=== PATIENT | male | born 1945 | race Caucasian/White ===

== ENCOUNTER 2024-01-10 09:56 | Outpatient (CLI) | payer MEDICARE, SELFPAY ==
[2024-01-10 19:39] LABS: Basophils Percent Auto 0.5 % (0.2-1.2); Eosinophils Absolute Auto 0.2 K/mm3 (0-0.3); Eosinophils Percent Auto 2.5 % (0-4.4); Hemoglobin 14.7 g/dL (14.0-18.0); Immature Granulocyte Absolute 0.01 K/mm3 (0.00-0.031); Immature Granulocyte Percent A 0.2 % (0-0.5); Lymphocytes Absolute Auto 1.92 K/mm3 (0.9-3.2); Lymphocytes Percent Auto 32.3 % (18.3-44.2); Mean Corpuscular HGB Conc 32.7 g/dl (32-36); Mean Corpuscular Hemoglobin 34.5 pg (26-34); Mean Corpuscular Volume 105.6 fl (80-100); Mean Platelet Volume 9.9 fl (7.4-10.4); Monocytes Absolute Auto 0.9 K/mm3 (0.1-0.6); Monocytes Percent Auto 14.3 % (2.6-8.5); Neutrophils Percent Auto 50.2 % (45.5-73.1); Platelet Count Result 161 k/mm3 (150-375); Red Blood Count 4.26 M/mm3 (4.6-6.20); Red Cell Distribution Width 13.7 % (11.5-14.5)
[2024-01-10 19:58] LABS: Alanine Aminotransferase 25 U/L (6-50); Albumin Level 4.6 g/dL (3.5-5.1); Alkaline Phosphatase 66 U/L (38-126); Anion Gap 5 mmol/L (4-12); Aspartate Amino Transferase 32 U/L (17-59); Bilirubin,Total 1.2 mg/dL (0.2-1.3); Blood Urea Nitrogen 15 mg/dL (9-20); Carbon Dioxide 29 mmol/L (22-30); Chloride 106 mmol/L (98-107); Estimated Glomerular Filt Rate > 60; Glucose 90 mg/dL (65-110); Potassium 4.1 mmol/L (3.4-5.0); Sodium 140 mmol/L (137-145)
[2024-01-10 20:01] LABS: Macrocytosis 1+ (NORMAL); Platelet Estimate Adequate (Adequate); Schistocytes None Seen
[2024-01-10 20:25] LABS: Prostate Specific Antigen 0.8 ng/mL (< OR = 4.0)
== END 2024-01-10 09:57 | disposition home or self-care (01) ==
PROVIDERS: PCP Family Medicine; Visit Provider Family Medicine
DX: Z12.5 Encounter for screening for malignant neoplasm of prostate (principal); R53.83 Other fatigue; E78.5 Hyperlipidemia, unspecified; Z86.73 Personal history of transient ischemic attack (TIA), and cerebral infarction without residual deficits; Z13.220 Encounter for screening for lipoid disorders; Z13.228 Encounter for screening for other metabolic disorders
CPT/HCPCS: 36415; 80053; 84153; 85025; G0103

== ENCOUNTER 2024-05-11 11:25 | Outpatient (CLI) | payer MEDICARE, SELFPAY ==
[2024-05-11 14:46] LABS: Cholesterol 130 mg/dL (0-200); HDL Direct 47 mg/dL; Triglycerides 96 mg/dL (<150)
[2024-05-11 14:57] LABS: LDL Cholesterol Direct 61 mg/dL
== END 2024-05-11 11:26 | disposition home or self-care (01) ==
LOC: ANHGOSHLAB 11:26
PROVIDERS: PCP Family Medicine; Visit Provider Family Medicine
DX: E78.5 Hyperlipidemia, unspecified (principal); Z86.73 Personal history of transient ischemic attack (TIA), and cerebral infarction without residual deficits
CPT/HCPCS: 36415; 80061

== ENCOUNTER 2024-11-15 00:21 | Day surgery (SDC) | payer MEDICARE, SELFPAY ==
[2024-11-09 12:45] VITALS: BMI 27.1
[2024-11-15 09:31] VITALS: BP 119/72; PULSE 62; RESP 18; TEMP 36.1; O2SAT 98; BMI 27.1
--- NOTE | 2024-11-15 09:45 | P.PNAN_ITS ---
Anes - Initial Pre Proc Eval Procedure: Operation Date: 11/15/24 11:00 Proposed Procedures p Colonoscopy - Josh Steve MD Date/Time: 11/15/24 09:45 Surgeon: Josh Steve MD Pre Op Diagnosis: family hx of cancer Patient Data Age: 79 Gender: M Height: 1.83 m Weight: 91 kg Last Vital Signs Temp 36.1 C L 11/15/24 09:31 Pulse 62 11/15/24 09:31 Resp 18 11/15/24 09:31 BP 119/72 11/15/24 09:31 Pulse Ox 98 11/15/24 09:31 O2 Del Method Room Air 11/15/24 09:31 Allergies Allergy/AdvReac Type Severity Reaction Status Date / Time amoxicillin Allergy Mild Rash Verified 11/15/24 09:30 diazepam (From Valium) Allergy Mild Depression Verified 11/15/24 09:30 Penicillins Allergy Mild Rash Verified 11/15/24 09:30 Home Medications ?Medication ?Instructions ?Recorded ?Confirmed ?Type latanoprost 0.005 % eye drops 1 drp EACH EYE QPM 01/10/24 11/15/24 History multivitamin 1 tablet PO DAILY 01/10/24 11/15/24 History budesonide 3 mg 3 mg PO QAM #90 ea 07/26/24 11/15/24 Rx capsule,delayed,extended release aspirin 81 mg tablet,delayed 81 mg PO DAILY #90 tabs 08/18/24 11/15/24 Rx release (Adult Aspirin Regimen) famotidine 20 mg tablet 20 mg PO DAILY #90 tabs 08/18/24 08/18/24 Rx finasteride 5 mg tablet 5 mg PO DAILY #90 tabs 08/18/24 11/15/24 Rx omeprazole 20 mg capsule,delayed 20 mg PO DAILY #90 caps 08/18/24 11/15/24 Rx release rosuvastatin 40 mg tablet 40 mg PO DAILY #90 tabs 08/18/24 11/15/24 Rx tamsulosin 0.4 mg capsule 0.4 mg PO DAILY #90 caps 08/18/24 11/15/24 Rx venlafaxine 37.5 mg tablet 18.75 mg (1/2 x 37.5 mg) PO DAILY 09/03/24 11/15/24 Rx 3 months #45 tabs timolol maleate 0.5 % eye drops 1 drp EACH EYE DAILY 11/09/24 11/15/24 History Patient hx anesthesia problems: none Family hx anesthesia problems: none Results Review: All pre-operative results and documents have been reviewed as part of the pre- operative evaluation. [facility] Past Medical History Medical History Stroke Fecal incontinence Fecal urgency Diarrhea Surgical History Surgical History (Updated 11/15/24 @ 09:46 by Jose Lanza MD) S/P carotid endarterectomy Family History Family History Father Carcinoma of colon Cerebrovascular accident Mother Depression Arthritis Sibling Arthritis Grandparent Asthma Social History Social History Social History: caffeine 3-4 cups soda/cola daily WILL ONLY ACCEPT BLOOD FROM FAMILY Smoking packs per day: 1 Smoking cigarettes per day: 20.0 Years smoked: 3 Smoking pack-years: 3.00 Smoking status: Former smoker Smoking end date: 09/06/1965 Alcohol intake: current Drinks per week: 7 Substance use: never Living arrangements: with family Occupation/Education: retired Gender identity (if verbalized by the patient): Male Sexual Orientation (if Verbalized by the Patient): Straight or Heterosexual Spiritual care concerns: No Anes - Eval Final PreProcedure Day of Procedure 11/15/24 09:45 Patient weight: overweight Heart: regular rate and rhythm Lungs: clear to auscultation Airway: Mallampati scale class II Neurological: alert and oriented Last oral intake: >/= 8 hours ASA classification: III Emergent: no Anesthetic plan: proceed Anesthesia type and monitoring: general GIVS and standard monitoring Results Review: All pre-operative results and documents have been reviewed as part of the pre- operative evaluation. Informed Consent: The patient's anesthetic plan and its attendant risks and benefits were discussed with the patient/family/POA. Questions were solicited and answers provided to the satisfaction of the patient/family/POA.
[2024-11-15] MEDS: LACTATED RINGERS 1,000 ML 150 ML IV CONT (09:49)
--- NOTE | 2024-11-15 10:40 | PM.HPGS ---
History of Present Illness History of Present Illness Consent: Risks, benefits, and alternatives have been discussed and questions answered. Patient agrees to proceed with procedure. Chief complaint: family hx of cancer Narrative: Anant Ambrose is a 79 year old male with last colonoscopy in 2019, father had colon cancer, also h/o microscopic colitis on budesonide Review of Systems Review of Systems: All systems reviewed & are unremarkable except as noted in HPI and below PMFSH Past Medical History Medical History Stroke Fecal incontinence Fecal urgency Diarrhea Surgical History Surgical History (Updated 11/15/24 @ 09:46 by Jose Lanza MD) S/P carotid endarterectomy Family History Family History Father Carcinoma of colon Cerebrovascular accident Mother Depression Arthritis Sibling Arthritis Grandparent Asthma Social History Social History Social History: caffeine 3-4 cups soda/cola daily WILL ONLY ACCEPT BLOOD FROM FAMILY Smoking packs per day: 1 Smoking cigarettes per day: 20.0 Years smoked: 3 Smoking pack-years: 3.00 Smoking status: Former smoker Smoking end date: 09/06/1965 Alcohol intake: current Drinks per week: 7 Substance use: never Living arrangements: with family Occupation/Education: retired Gender identity (if verbalized by the patient): Male Sexual Orientation (if Verbalized by the Patient): Straight or Heterosexual Spiritual care concerns: No Meds Home Medications and Allergies Home Medications ?Medication ?Instructions ?Recorded ?Confirmed ?Type latanoprost 0.005 % eye drops 1 drp EACH EYE QPM 01/10/24 11/15/24 History multivitamin 1 tablet PO DAILY 01/10/24 11/15/24 History budesonide 3 mg 3 mg PO QAM #90 ea 07/26/24 11/15/24 Rx capsule,delayed,extended release aspirin 81 mg tablet,delayed 81 mg PO DAILY #90 tabs 08/18/24 11/15/24 Rx release (Adult Aspirin Regimen) famotidine 20 mg tablet 20 mg PO DAILY #90 tabs 08/18/24 08/18/24 Rx finasteride 5 mg tablet 5 mg PO DAILY #90 tabs 08/18/24 11/15/24 Rx omeprazole 20 mg capsule,delayed 20 mg PO DAILY #90 caps 08/18/24 11/15/24 Rx release rosuvastatin 40 mg tablet 40 mg PO DAILY #90 tabs 08/18/24 11/15/24 Rx tamsulosin 0.4 mg capsule 0.4 mg PO DAILY #90 caps 08/18/24 11/15/24 Rx venlafaxine 37.5 mg tablet 18.75 mg (1/2 x 37.5 mg) PO DAILY 09/03/24 11/15/24 Rx 3 months #45 tabs timolol maleate 0.5 % eye drops 1 drp EACH EYE DAILY 11/09/24 11/15/24 History Allergies Allergy/AdvReac Type Severity Reaction Status Date / Time amoxicillin Allergy Mild Rash Verified 11/15/24 09:30 diazepam (From Valium) Allergy Mild Depression Verified 11/15/24 09:30 Penicillins Allergy Mild Rash Verified 11/15/24 09:30 Vital Signs Vital Signs - 24 hr 11/15/24 09:31 Temperature 97 F L Pulse Rate 62 Respiratory Rate 18 Blood Pressure 119/72 Pulse Oximetry 98 Oxygen Delivery Room Air Exam Const: General: comfortable and no acute distress HENMT: Face/Nose/Sinus: Normal nares present Eyes: General: appearance normal, both eyes and all related structures Neck: Neck: no JVD Resp: Auscultation: clear to auscultation bilaterally Cardio: Rate: regular rate Rhythm: regular rhythm GI: Inspection: non-distended GI Palp: Yes Soft to palpation Skin: General skin exam: normal color Neuro: Speech: normal speech Extrem: General: normal to inspection Psych: Mental Status: mental status grossly normal Assessment and Plan Assessment and plan (1) Family hx of colon cancer: Code(s): Z80.0 - Family history of malignant neoplasm of digestive organs Status: Acute Assessment and Plan: colonoscopy (2) Collagenous colitis: Code(s): K52.831 - Collagenous colitis Status: Acute Assessment and Plan: random colon bx
--- NOTE | 2024-11-15 10:59 | S_PTH ---
PATIENT: Anant Ambrose LOC: [facility] [place]#:[id number] AGE/SX: 79/M ROOM: RE11/15/[address]: Josh Steve MD : 1945 BED: DIS: 11/15/2024 SPEC #: [id number] RECD: 11/15/24 11:54 STATUS: [place] REPrice #: [id number] GLENNY: 11/15/24 10:[address]: Josh Steve DEPT: [facility] Surgical RECD BY: Kathleen Whitman ENTERED: 11/15/24 11:54 SP TYPE: Surgical OTHR DR: Maricel Giles APRN Tissues: A - Colon Polypectomy B - Colon Biopsy Procedures: Hematoxylin and Eosin Stain Gross and Microscopic Level 4
[2024-11-15 11:02] VITALS: BP 92/52; PULSE 62; RESP 14; O2SAT 96
[2024-11-15 11:12] VITALS: BP 84/43; PULSE 61; RESP 20; O2SAT 99
[2024-11-15 11:32] VITALS: BP 116/71; PULSE 74; RESP 16; O2SAT 99
== END 2024-11-15 11:41 | disposition home or self-care (01) ==
PROVIDERS: PCP Nurse Practitioner Family; Referring Provider Nurse Practitioner; Visit Provider Internal Medicine Gastroenterology
PROC: 0DJD8ZZ Inspection of Lower Intestinal Tract, Via Natural or Artificial Opening Endoscopic (ICD-10-PCS; CPT 45378; principal; 2024-11-15 11:00)
DX: Z12.11 Encounter for screening for malignant neoplasm of colon (principal); D12.3 Benign neoplasm of transverse colon; K52.832 Lymphocytic colitis; K64.8 Other hemorrhoids; K57.30 Diverticulosis of large intestine without perforation or abscess without bleeding; R15.2 Fecal urgency; Z79.82 Long term (current) use of aspirin; Z98.890 Other specified postprocedural states; Z87.891 Personal history of nicotine dependence; Z86.73 Personal history of transient ischemic attack (TIA), and cerebral infarction without residual deficits; Z80.0 Family history of malignant neoplasm of digestive organs; Z82.49 Family history of ischemic heart disease and other diseases of the circulatory system
CPT/HCPCS: 45380; 45385; 88305; J2003; J2371; J2704; J7120

== ENCOUNTER 2025-02-09 10:27 | Outpatient (CLI) | payer MEDICARE, SELFPAY ==
--- NOTE | ~2025-02-09 | XR_ITS ---
XR chest 2V 02/09/2025 10:43 Indication: Chronic cough Procedure: PA and lateral views the chest Comparison: No prior studies for comparison. Findings: Borderline heart size. There is interstitial infiltrates bilaterally. No significant effusi on or pneumothorax. Impression: 1: Bilateral interstitial infiltrates. Differential diagnosis includes chronic interstitial lung dise ase, mild edema and atypical pneumonia. Reviewed, dictated and finalized at location A. Impression: 1: Bilateral interstitial infiltrates. Differential diagnosis includes chronic interstitial lung disease, mild edema and atypical pneumonia.
[2025-02-09 11:40] LABS: Hematocrit 44.7 % (42.0-52.0); Hemoglobin 14.7 g/dL (14.0-18.0); Immature Platelet Fraction Pct 3.6 % (0.9-11.2); Mean Corpuscular HGB Conc 32.9 g/dl (32-36); Mean Corpuscular Hemoglobin 34.1 pg (26-34); Mean Corpuscular Volume 103.7 fl (80-100); Mean Platelet Volume 9.6 fl (7.4-10.4); Platelet Count Result 149 k/mm3 (150-375); Red Blood Count 4.31 M/mm3 (4.6-6.20); Red Cell Distribution Width 13.4 % (11.5-14.5)
[2025-02-09 11:54] LABS: Alanine Aminotransferase 28 U/L (6-50); Albumin Level 4.6 g/dL (3.5-5.1); Alkaline Phosphatase 71 U/L (38-126); Anion Gap 6 mmol/L (4-12); Aspartate Amino Transferase 34 U/L (17-59); Bilirubin,Total 1.2 mg/dL (0.2-1.3); Blood Urea Nitrogen 18 mg/dL (9-20); Calcium 10.2 mg/dL (8.4-10.2); Carbon Dioxide 30 mmol/L (22-30); Chloride 104 mmol/L (98-107); Cholesterol 139 mg/dL (0-200); Estimated Glomerular Filt Rate > 60; Glucose 97 mg/dL (65-110); HDL Direct 55 mg/dL; Magnesium 1.6 mg/dL (1.6-2.3); Potassium 4.1 mmol/L (3.4-5.0); Sodium 140 mmol/L (137-145); Total Protein 7.7 g/dL (6.3-8.2); Triglycerides 73 mg/dL (<150)
[2025-02-09 12:05] LABS: LDL Cholesterol Direct 64 mg/dL
[2025-02-09 13:03] LABS: Folic Acid 19.1 ng/mL (2.76->20)
[2025-02-09 13:18] LABS: Free T4 Free Thyroxine Reflex 0.69 ng/dL (0.78-2.19)
== END 2025-02-09 10:28 | disposition home or self-care (01) ==
PROVIDERS: PCP Nurse Practitioner Family; Visit Provider Nurse Practitioner Family
DX: R91.8 Other nonspecific abnormal finding of lung field (principal); K21.9 Gastro-esophageal reflux disease without esophagitis; M35.3 Polymyalgia rheumatica; N40.1 Benign prostatic hyperplasia with lower urinary tract symptoms; R35.1 Nocturia; K52.831 Collagenous colitis; H34.8392 Tributary (branch) retinal vein occlusion, unspecified eye, stable; F41.8 Other specified anxiety disorders; D75.89 Other specified diseases of blood and blood-forming organs; M65.332 Trigger finger, left middle finger; E53.8 Deficiency of other specified B group vitamins; R41.3 Other amnesia; I25.10 Atherosclerotic heart disease of native coronary artery without angina pectoris; R79.0 Abnormal level of blood mineral; Z79.899 Other long term (current) drug therapy; Z86.0100 Personal history of colon polyps, unspecified; Z86.73 Personal history of transient ischemic attack (TIA), and cerebral infarction without residual deficits; Z80.0 Family history of malignant neoplasm of digestive organs
CPT/HCPCS: 36415; 71046; 80053; 80061; 82607; 82746; 83735; 84439; 84443; 85027; 85055

== ENCOUNTER 2025-02-22 11:18 | Outpatient (CLI) | payer MEDICARE, SELFPAY ==
--- NOTE | ~2025-02-22 | US_ITS ---
EXAMINATION: US carotid duplex BI DATE: 02/22/2025 12:37 INDICATION: Speech-language deficit. Occlusion stenosis of unspecified carotid artery. TECHNIQUE: Grayscale, color Doppler, and pulsed Doppler images of the cervical carotid arteries were obtained. The degree of vessel stenosis is placed in one of the following categories: normal, <50%, 5 0-69%, >=70% but less than near-occlusion, near-occlusion, or total occlusion. Note that percent sten osis relative to normal distal artery lumen diameter is indirectly measured from velocity measurement s as described by Aubrey, et al. Radiology 2003; 229:340-346. COMPARISON: None. FINDINGS: RIGHT: The right common carotid artery (CCA) peak systolic velocity (PSV) is 60 cm/s. The right internal car otid artery (ICA) PSV is 71 cm/s. The right ICA end-diastolic velocity (EDV) is 27 cm/s. The right IC A/CCA PSV ratio is 1.2. Grayscale and color Doppler images yield an estimate of <50% diameter reducti on from plaque in the ICA. The external carotid artery (ECA) PSV is 60 cm/s. There is antegrade flow in the right vertebral artery. LEFT: The left CCA PSV is 72 cm/s. The left ICA PSV is 71 cm/s. The left ICA EDV is 20 cm/s. The left ICA/C CA PSV ratio is 1.0. Grayscale and color Doppler images yield an estimate of <50% diameter reduction from plaque in the ICA. The ECA PSV is 82 cm/s. There is antegrade flow in the left vertebral artery. IMPRESSION: 1. <50% stenosis in the right internal carotid artery. 2. <50% stenosis in the left internal carotid artery. Reviewed, dictated and finalized at location B.
--- OUTSIDE RECORDS SUMMARY | 2025-02-22 12:14 | XMS_ITS | Patient Health Record ---
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 Role Phone Mone Szymanski Primary Care Provider Ayo Arias Unavailable [phone] Allergies Allergen (clinical drug ingredient) Drug/Non Drug Allergy documented on EMR Reaction Allergy Type Onset Date Status PCN (uncoded) Unknown Allergy Active diazepam Valium Unknown Drug Allergy Active Reason For Referral No Information Medications Medication SIG (Take, Route, Frequency, Duration) Notes Start Date End Date Status Venlafaxine HCl ER 37.5 MG Orally Active Latanoprost Active Timolol Maleate Acti ve Calcium 600 MG Orally Activ e Aspirin 325 MG Orally Activ e Vitamin D3 Active Multivitamin Active Omeprazole 20 MG Orally Act noah Finasteride 5 MG Orally Act naoh Tamsulosin HCl 0.4 MG Orally Active Rosuvastatin Calcium 40 MG Orally Active Social History Tobacco Use: Social History Observation Description Date Details (start date - stop date) Never Smoker NA - NA Non smoking Question Answer Notes Are you a nonsmoker Alcohol Screen (Audit-C) Question Answer Notes Did you have a drink contain ing alcohol in the past year? Yes How often did you have a dri nk containing alcohol in the past year? 4 or more times a week (4 points) How many drinks did you have on a typical day when you were drinking in the past year? 1 or 2 drinks (0 point) How often did you have 6 or more drinks on one occasion in the past year? 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 Alcohol: one/day Problems Problem Type SNOMED Code ICD Code Onset Dates Problem Status W/U Status Risk Notes Problem [id number] Imbalance (R26.89) Active confirmed Problem 4678225 Bilateral leg weakness (R29.898) Active confirmed Problem [id number] Bilateral arm weakness (R29.898) Active confirmed Plan Of Treatment No Information Insurance Providers Payer Name Payer Address Payer Phone Subscriber Number Group Number Insured Name Patient Relationship to Insured Coverage Start Date Coverage End Date [facility] [employer] [address] [address] [place] [address] [phone] [id number] Anant Ambrose Self - patient is the insured Medical (General) History Medical History History ICD Code PMR Leg weakness Stroke Jun 2010; affected speech/still d ysarthric Right CEA L5 surgery mid Colitis Aug 2020 Surgical History Surgery Date(Month/Year)
== END 2025-02-22 11:19 | disposition home or self-care (01) ==
PROVIDERS: PCP Nurse Practitioner Family; Visit Provider Nurse Practitioner Family
DX: I65.23 Occlusion and stenosis of bilateral carotid arteries (principal)
CPT/HCPCS: 93880

== ENCOUNTER 2025-03-20 10:20 | Outpatient (CLI) | payer MEDICARE, SELFPAY ==
--- OUTSIDE RECORDS SUMMARY | 2025-03-20 10:33 | XMS_ITS | Patient Health Record ---
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; 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; 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 Alcohol: 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/day 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; 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; 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; 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 Alcohol: one/day Problems Problem Type SNOMED Code ICD Code Onset Dates Problem Status W/U Status Risk Notes Problem Abnormal gait (69350617) Imbalance (R26.89) Active confirmed Problem Disorder of musculoskeletal system (645920) Bilateral leg weakness (R29.898) Active confirmed Problem Disorder of musculoskeletal system (648117) Bilateral arm weakness (R29.898) Active confirmed Plan Of Treatment No Information Insurance Providers Payer Name Payer Address Payer Phone Subscriber Number Group Number Insured Name Patient Relationship to Insured Coverage Start Date Coverage End Date [facility] [employer] [address] [address] [place] [phone] [id number] Anant Ambrose Self - patient is the insured Medical (General) History Medical History History ICD Code PMR Leg weakness Stroke Jun 2010; affected speech/still d ysarthric Right CEA L5 surgery mid Colitis Aug 2020 Surgical History Surgery Date(Month/Year)
[2025-03-20 12:17] LABS: Add Urine Microscopic? YES; Appearance Urine Clear (Clear); Glucose Urine UA Negative (Negative); Leukocyte Esterase Ur Negative LEU/UL (Negative); Nitrate Urine Negative (Negative); Non Pathogenic Casts 0-2; Specific Grav Ur 1.022 (1.001-1.035)
[2025-03-20 12:43] LABS: Thyroid Stimulating Hormone Reflex 4.200 uIU/mL (0.465-4.68)
[2025-03-20 13:59] LABS: Free T4 Free Thyroxine Reflex 0.63 ng/dL (0.78-2.19)
== END 2025-03-20 10:21 | disposition home or self-care (01) ==
LOC: ANHLAB 10:21
PROVIDERS: PCP Nurse Practitioner Family; Visit Provider Nurse Practitioner Family
DX: E05.90 Thyrotoxicosis, unspecified without thyrotoxic crisis or storm (principal); R41.3 Other amnesia
CPT/HCPCS: 36415; 81001; 84439; 84443; 87086